=== PATIENT | male | born 1990 | race American Indian/Alaskan Native ===

== ENCOUNTER 2019-05-06 12:27 | Emergency (ER) | payer OTHER ==
[2019-05-06] MEDS ORDERED: TORADOL IV ONE (12:48)
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
[2019-05-06] MEDS ORDERED: MORPHINE IV ONE (13:38)
[2019-05-06] MEDS ORDERED: ZOFRAN IV ONE (13:38)
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
[2019-05-06 17:52] VITALS: BP 141/96
== END 2019-05-06 17:55 | disposition home or self-care (01) ==
LOC: ED 12:27
DX: S16.1XXA Strain of muscle, fascia and tendon at neck level, initial encounter (principal); S46.911A Strain of unspecified muscle, fascia and tendon at shoulder and upper arm level, right arm, initial encounter; J45.909 Unspecified asthma, uncomplicated; F17.200 Nicotine dependence, unspecified, uncomplicated; F12.90 Cannabis use, unspecified, uncomplicated; Z79.899 Other long term (current) drug therapy; Z88.6 Allergy status to analgesic agent; V89.2XXA Person injured in unspecified motor-vehicle accident, traffic, initial encounter; Y93.89 Activity, other specified; Y92.488 Other paved roadways as the place of occurrence of the external cause; Y99.8 Other external cause status
CPT/HCPCS: 71045; 72125; 73030; 96374; 96375; 99285; J1885; J2270; J2405